=== PATIENT | male | born 1990 | race Two or more races ===

== ENCOUNTER 2022-10-23 19:12 | Emergency (ER) | payer MEDICAID, OTHER ==
[~2022-10-23] VITALS: Ht 175.3 cm; Wt 122.0 kg
[2022-10-23 19:12] VITALS: BP 145/101
[2022-10-23] MEDS ORDERED: ACET1CAP14 PO (22:38)
[2022-10-23] MEDS ORDERED: CYCL-839 PO (22:38)
[2022-10-23] MEDS ORDERED: MECL-111 PO (22:40)
[2022-10-23] MEDS ORDERED: ONDA-144 PO (22:40)
[2022-10-23] MEDS ORDERED: ONDANSETRON ODT 4 MG TAB PO ONE (22:45)
[2022-10-23] MEDS ORDERED: MECLIZINE HCL 25 MG TAB PO ONE (22:45)
[2022-10-23] MEDS ORDERED: KETOROLAC TROMETH 30 MG/ML 1ML VIAL IM ONE (22:45)
== END 2022-10-23 23:28 | disposition left against medical advice (07) ==
LOC: ER 19:20
DX: S16.1XXA Strain of muscle, fascia and tendon at neck level, initial encounter (principal); R51.9 Headache, unspecified; R11.2 Nausea with vomiting, unspecified; F32.9 Major depressive disorder, single episode, unspecified; X58.XXXA Exposure to other specified factors, initial encounter; Y93.89 Activity, other specified; Y92.89 Other specified places as the place of occurrence of the external cause; Y99.8 Other external cause status
CPT/HCPCS: 70450

== ENCOUNTER 2022-11-09 18:03 | Emergency (ER) | payer MEDICAID ==
[~2022-11-09] VITALS: Ht 177.8 cm; Wt 126.0 kg
[~2022-11-09 18:03] MED LIST: ACET1CAP14 PO; CYCL-839 PO; MECL-111 PO; ONDA-144 PO
[2022-11-09] MEDS ORDERED: IBUP800T26 PO (20:14)
[2022-11-09 20:33] VITALS: BP 141/91
== END 2022-11-09 20:36 | disposition home or self-care (01) ==
LOC: ER 18:03
DX: S93.401A Sprain of unspecified ligament of right ankle, initial encounter (principal); Z88.0 Allergy status to penicillin; W18.00XA Striking against unspecified object with subsequent fall, initial encounter; Y93.89 Activity, other specified; Y92.89 Other specified places as the place of occurrence of the external cause; Y99.8 Other external cause status
CPT/HCPCS: 73630